=== PATIENT | female | born 1940 | race Caucasian/White ===

== ENCOUNTER → 2018-01-12 | Outpatient (CLI) | payer MEDICARE ==
--- NOTE | 2018-01-12 23:58 | BD ---
EXAMINATION TYPE: Axial Bone Density DATE OF EXAM: 01/12/2018 COMPARISON: NONE CLINICAL HISTORY: 77-year-old female postmenopausal screening Height: 59 IN Weight: 178 LBS FRAX RISK QUESTIONS: Secondary Osteoporosis: 3. Menopause before 45: YES AGE 35 RISK FACTORS HISTORY OF: Active: YES Postmenopausal woman: AGE 35 MEDICATIONS: Additional Medications: VIT D3, BLOOD PRESSURE MED, HEART MED, ATORVASTATIN, HCTZ EXAM MEASUREMENTS: Bone mineral densitometry was performed using the [employer] System. Bone mineral density as measured about the Lumbar spine is: ----- L1-L4(G/cm2): 1.182 T Score Values are as follows: ----- L2: -0.6 ----- L3: 0.2 ----- L4: 0.1 ----- L1-L4: 0.0 Bone mineral density BASELINE Bone mineral density about the R hip (g/cm2): 0.801 Bone mineral density about the L hip (g/cm2): 0.817 T Score values are as follows: -----R Neck: -1.7 -----L Neck: -1.6 -----R Total: -0.3 -----L Total: -0.9 Bone mineral density BASELINE IMPRESSION: Osteopenia (T Score between -2.5 and -1). There is slightly increased risk of fracture and the patient may be considered for treatment. Re-Screen 2-5 years. NOTE: T-SCORE=SD OF THE YOUNG ADULT MEAN.
--- NOTE | 2018-01-14 11:29 | MM ---
Reason for exam: screening (asymptomatic). Last mammogram was performed 2 years and 8 months ago. History: Patient is postmenopausal. Took estrogen for 30 years beginning at age 35. Physical Findings: A clinical breast exam by your physician is recommended on an annual basis and results should be correlated with mammographic findings. MG 3D Screening Mammo W/Cad Bilateral CC and MLO view(s) were taken. Prior study comparison: April 11, 2010, bilateral digital screening mammogram. April 07, 2007, CAD bilateral diagnostic mammogram. There are scattered fibroglandular densities. There is chronic nodularity in the left breast. No significant changes when compared with prior studies. ASSESSMENT: Negative, BI-RAD 1 RECOMMENDATION: Routine screening mammogram of both breasts in 1 year.
== END | disposition home or self-care (01) ==
LOC: RADMAMWWP 14:49
PROVIDERS: ATTEND Family Medicine
DX: Z12.31 Encounter for screening mammogram for malignant neoplasm of breast (principal); M85.80 Other specified disorders of bone density and structure, unspecified site; Z78.0 Asymptomatic menopausal state
CPT/HCPCS: 77063; 77067; 77080

== ENCOUNTER 2019-01-17 12:57 | Emergency (ER) | payer MEDICARE ==
[2019-01-17] MEDS ORDERED: DIPH,PERTUS(ACELL)TETVAC-LF 0.5 ML VIAL IM ONE (14:08)
[2019-01-17] MEDS ORDERED: ACETAMINOPHEN TAB 325 MG TAB PO STA (14:08)
[2019-01-17] MEDS ORDERED: LIDOCAINE 1% INJ 10MG/ML (20 ML MDV) SQ STA (14:09)
--- NOTE | 2019-01-17 15:25 | XR ---
EXAMINATION TYPE: XR forearm LT, XR humerus LT DATE OF EXAM: 01/17/2019 CLINICAL HISTORY: Left humerus and forearm pain after fall TECHNIQUE: Two views of the left humerus and forearm are obtained. COMPARISON: None. FINDINGS: Acute impaction fracture of the distal right radius is seen with 1.1 cm foreshortening. Th ere is a vague intra-articular component and comminution. Moderately alignment overall is maintained. No additional fracture seen. Carpal carpal interspaces are maintained. Glenohumeral joint is aligned . Elbow joint is aligned. No humeral fracture. Chromic clavicular joint demonstrates mild arthropathy . Overall there is diffuse osseous demineralization. Soft tissue swelling is seen overlying the prima ry fracture site. IMPRESSION: Acute comminuted intra-articular impaction fracture of the distal right radius with overl mu soft tissue swelling.
--- NOTE | 2019-01-17 16:43 | ED ---
General Adult HPI - General Chief complaint: Extremity Injury, Upper Stated complaint: Fall-wrist injury Time Seen by Provider: 01/17/19 14:01 Source: patient, RN notes reviewed, old records reviewed Mode of arrival: ambulatory Limitations: no limitations - History of Present Illness Initial comments: 79-year-old female patient presents ED chief complaint a fall. Patient was that she was walking a dog, the dog pulled her, she fell forward landing on her left forearm. Patient complains of pain in her left mid shaft radius. Denies any trauma to head or neck. Denies any loss of consciousness. Denies any use of blood thinners. His on the date of last tetanus. Patient does also have a laceration to the palmar aspect of the first MCP joint. Denies any other complaints. Systemic: Pt denies fatigue, fever/chills, rash. Pt denies weakness, night sweats, weight loss. Neuro: Pt denies headache, visual disturbances, syncope or pre-syncope. HEENT: Pt denies ocular discharge or irritation, otalgia, rhinorrhea, pharyngitis or notable lymphadenopathy. Cardiopulmonary: Pt denies chest pain, SOB, heart palpitations, dyspnea on exertion. Abdominal/GI: Pt denies abdominal pain, n/v/d. : Pt denies dysuria, burning w/ urination, frequency/urgency. Denies new onset urinary or bowel incontinence. MSK: Pt denies myalgia, loss of strength or function in extremities. Neuro: Pt denies new onset weakness, paresthesias. - Related Data Home Medications Medication Instructions Recorded Confirmed Aspirin EC [Ecotrin Low Dose] 81 mg PO HS 01/17/19 01/17/19 Atorvastatin [Lipitor] 10 mg PO HS 01/17/19 01/17/19 Carvedilol [Coreg] 6.25 mg PO BID 01/17/19 01/17/19 Cholecalciferol [Vitamin D3 (25 1,000 unit PO DAILY 01/17/19 01/17/19 Mcg = 1000 Iu)] Multivitamins, Thera [Multivitamin 1 tab PO DAILY 01/17/19 01/17/19 (formulary)] Allergies Allergy/AdvReac Type Severity Reaction Status Date / Time bee venom protein (honey bee) Allergy Anaphylaxis Verified 01/17/19 14:21 codeine AdvReac Unknown Verified 01/17/19 14:19 Review of Systems ROS Statement: Those systems with pertinent positive or pertinent negative responses have been documented in the HPI. ROS Other: All systems not noted in ROS Statement are negative. Past Medical History Past Medical History: Hypertension History of Any Multi-Drug Resistant Organisms: None Reported Past Surgical History: Hysterectomy, Orthopedic Surgery Additional Past Surgical History / Comment(s): gall bladder removal Past Psychological History: No Psychological Hx Reported Smoking Status: Never smoker Past Alcohol Use History: Occasional Past Drug Use History: None Reported General Exam - General Exam Comments Initial Comments: Constitutional: NAD, AOX3, Pt has pleasant affect. HEENT: NC/AT, trachea midline, neck supple, no lymphadenopathy. Posterior pharynx non erythematous, without exudates. External ears appear normal, without discharge. Mucous membranes moist. Eyes PERRLA, EOM intact. There is no scleral icterus. No pallor noted. Cardiopulmonary: RRR, no murmurs, rubs or gallops, no JVD noted. Lungs CTAB in anterior and posterior craig. No peripheral edema. Abdominal exam: Abdomen soft and non-distended. Abdomen non-tender to palpation in all 4 quadrants. Bowel sounds active in LLQ. No hepatosplenomegaly. No ecchy mosis Neuro: CN II-XII grossly intact. No nuchal rigidity. No raccon eyes, no jay sign, no hemotympanum. No cervical spinal tenderness. MSK: Left midshaft radius nontender to palpation. Mild amount of soft tissue swelling. Range of motion intact hand and wrist. Once under laceration to palmar aspect of left PIP joint of the fourth digit of left hand. Patient placed in a thumb spica splint, straight finger splint. Neurovascular intact after splint placement. No posterior calf tenderness bilaterally, homans sign negative bilaterally. Posterior tibialis and radial pulse +2 bilaterally. Sensation intact in upper and lower extremities. Full active ROM in upper and lower extremities, 5/5 stregnth. Limitations: no limitations Course Vital Signs 01/17/19 01/17/19 01/17/19 13:19 15:01 15:48 Temperature 62 F L 97.6 F Pulse Rate 61 Respiratory 18 16 Rate Blood Pressure 161/78 O2 Sat by Pulse 99 Oximetry Procedures - Laceration Laceration #1 Consent Obtained: verbal consent Indication: laceration Site: hand Size (cm): 1 Description: linear Anesthetic Used: lidocaine 1% Anesthesia Technique: local infiltration Amount (mls): 2 Pre-repair: wound explored, irrigated extensively, deep structures intact Size of Sutures: 5-0 Number of Sutures: 2 Technique: simple, interrupted Patient Tolerated Procedure: well, no complications Medical Decision Making - Medical Decision Making 79-year-old female patient presents ED chief complaint a fall. Patient was that she was walking a dog, the dog pulled her, she fell forward landing on her left forearm. Patient complains of pain in her left mid shaft radius. Denies any trauma to head or neck. Denies any loss of consciousness. Denies any use of blood thinners. His on the date of last tetanus. Patient does also have a laceration to the palmar aspect of the first MCP joint. Denies any other complaints. Patient was sent stable, afebrile. Physical exam displayed: Left midshaft radius nontender to palpation. Mild amount of soft tissue swelling. Range of motion intact hand and wrist. Once under laceration to palmar aspect of left PIP joint of the fourth digit of left hand. Patient placed in a thumb spica splint, straight finger splint. Neurovascular intact after splint placement. Plain film of forms for acute comminuted and particular impaction fracture of distal radius the flank soft tissue swelling. Patient was discharged with routine follow-up. Case discussed with Dr. Brown. Disposition Clinical Impression: Wrist fracture, Laceration Disposition: HOME SELF-CARE Condition: Stable Instructions (If sedation given, give patient instructions): Wrist Injury (ED), Wrist Fracture in Adults (ED), Laceration (ED) Additional Instructions: Patient to adhere to previously discussed treatment plan and will take medication(s) as directed. Patient to follow up with PCP in 1-2 days. Patient to return to ED if symptoms do not improve. Please return for suture removal: Hand: 7-10 days Face: 5 days Chest/abdomen: 12-14 days Extremities: 7-10 days Scalp: 7 days Eyebrow: 5-7 days Foot/sole: 12-14 days Please monitor for signs and symptoms of infection including: redness, warmth, drainage, discharge. Please return to ED if these signs or symptoms occur, new signs or symptoms develop or if condition worsens in anyway. Follow-up with orthopedic consult tomorrow. Continue to her wrist and straight finger splint. Return to ER if condition worsens. Is patient prescribed a controlled substance at d/c from ED?: No Referrals: Tesfaye Terry MD [Primary Care Provider] - 1-2 days West Desouza MD [STAFF PHYSICIAN] - 1-2 days
[2019-01-17 17:03] VITALS: BP 155/65; PULSE 71; RESP 20; TEMP 98
== END 2019-01-17 16:50 | disposition home or self-care (01) ==
LOC: EC 12:57
DX: S52.572A Other intraarticular fracture of lower end of left radius, initial encounter for closed fracture (principal); S61.412A Laceration without foreign body of left hand, initial encounter; I10 Essential (primary) hypertension; Z79.82 Long term (current) use of aspirin; Z79.899 Other long term (current) drug therapy; Z88.5 Allergy status to narcotic agent; Z91.030 Bee allergy status; W01.0XXA Fall on same level from slipping, tripping and stumbling without subsequent striking against object, initial encounter; Y93.K1 Activity, walking an animal
CPT/HCPCS: 73060; 73090; 90715; 99284; 90471; 29125; J2001

== ENCOUNTER → 2020-05-20 | Outpatient (CLI) | payer MEDICARE ==
--- NOTE | 2020-05-20 16:07 | BD ---
EXAMINATION TYPE: Axial Bone Density DATE OF EXAM: 05/20/2020 COMPARISON: 01/12/2018 CLINICAL HISTORY: Height: 58.7 IN Weight: 171 LBS FRAX RISK QUESTIONS: History of Fracture in Adulthood: LT WRIST AGE 79 Secondary Osteoporosis: 3. Menopause before 45: TOTAL HYST AGE 41 RISK FACTORS HISTORY OF: History of Wrist Fracture: LT WRIST AGE 79 Surgery to Wrist (left): YES AGE 79 Active: YES Postmenopausal woman: TOTAL HYST AGE 41 Take estrogen and/or progesterone medications: NOT NOW How long: TOOK CONTROL FOR 10 YEARS MEDICATIONS: Additional Medications: CALCIUM, VIT D, CARVEDITAL, ATORVASTATIN, AMLODIPINE, ASPIRIN EXAM MEASUREMENTS: Bone mineral densitometry was performed using the [employer] System. Bone mineral density as measured about the Lumbar spine is: ----- L1-L4(G/cm2): 1.194 T Score Values are as follows: ----- L2: -0.4 ----- L3: 0.4 ----- L4: 0.7 ----- L1-L4: 0.1 Bone mineral density has: Increased 3.4% since study of: 01/12/2018 Bone mineral density about the R hip (g/cm2): 0.813 Bone mineral density about the L hip (g/cm2): 0.832 T Score values are as follows: -----R Neck: -1.6 -----L Neck: -1.5 -----R Total: -0.9 -----L Total: -0.7 Bone mineral density has: Decreased -3.2% since study of: 01/12/2018 IMPRESSION: Osteopenia (T Score between -2.5 and -1). There is slightly increased risk of fracture and the patient may be considered for treatment. Re-Screen 2-5 years. NOTE: T-SCORE=SD OF THE YOUNG ADULT MEAN.
--- NOTE | 2020-05-21 09:41 | MM ---
Reason for exam: screening (asymptomatic). Last mammogram was performed 2 years and 4 months ago. History: Patient is postmenopausal. Took estrogen for 30 years beginning at age 35. Physical Findings: A clinical breast exam by your physician is recommended on an annual basis and results should be correlated with mammographic findings. MG 3D Screening Mammo W/Cad Bilateral CC and MLO view(s) were taken. Prior study comparison: January 12, 2018, bilateral MG 3d screening mammo w/cad. April 30, 2015, mammogram, performed at [facility]. There are scattered fibroglandular densities. There are benign appearing vascular calcifications bilaterally. There is chronic nodularity in the left breast. There is no discrete abnormality. ASSESSMENT: Benign, BI-RAD 2 RECOMMENDATION: Routine screening mammogram of both breasts in 1 year.
== END | disposition home or self-care (01) ==
LOC: RADBDWWP 12:50
PROVIDERS: ATTEND Family Medicine
DX: Z12.31 Encounter for screening mammogram for malignant neoplasm of breast (principal); M85.80 Other specified disorders of bone density and structure, unspecified site; Z78.0 Asymptomatic menopausal state
CPT/HCPCS: 77063; 77067; 77080

== ENCOUNTER → 2022-08-25 | Outpatient (CLI) | payer MEDICARE ==
--- NOTE | 2022-08-25 10:05 | BD ---
EXAMINATION TYPE: Axial Bone Density DATE OF EXAM: 08/25/2022 CLINICAL HISTORY: 82 year old Female. ICD-10 CODE: M89.9 DISORDER OF BONE Height: 58 Weight: 178.6 FRAX RISK QUESTIONS: Alcohol (3 or more units per day): no Family History (Parent hip fracture): no Glucocorticoids (More than 3mos): no (Ex: prednisone, prednisolone, methylprednisolone, dexamethasone, and hydrocortisone). History of Fracture in Adulthood: yes Secondary Osteoporosis: 1. Type 1 Diabetes: no 2. Hyperthyroidism: no 3. Menopause before 45: no 4. Malnutrition: no 5. Chronic liver disease: no Rheumatoid Arthritis: no Current Tobacco Use: no RISK FACTORS HISTORY OF: Hip Fracture (Right/Left): left wrist When: 2019 Surgery to Spine/Hip(right/left)/Wrist (right/left): no Family History of Osteoporosis: no Active: yes Diet low in dairy products/other sources of calcium: no Postmenopausal woman: yes Lost more than 2 inches in height since high school: no MEDICATIONS: Additional History: EXAM MEASUREMENTS: Bone mineral densitometry was performed using the [employer] System. Bone mineral density as measured about the Lumbar spine is: ----- L1-L4(G/cm2): 1.198 T Score Values are as follows: ----- L1: 0.3 ----- L2: -1.3 ----- L3: 0.9 ----- L4: 0.1 ----- L1-L4: 0.2 Z Score Values are as follows: ----- L1: 1.7 ----- L2: 0.0 ----- L3: 2.3 ----- L4: 1.8 ----- L1-L4: 1.5 Bone mineral density has: increased 0.3 % since study of: 05.20.2020 Bone mineral density about the R hip (g/cm2): 0.928 Bone mineral density about the L hip (g/cm2): .0953 T Score values are as follows: -----R Neck: -1.3 -----L Neck: -1.5 -----R Total: -0.6 -----L Total: -0.4 Z Score values are as follows: -----R Neck: 0.7 -----L Neck: 0.6 -----R Total: 1.2 -----L Total: 1.4 FRAX%s: The graph provided illustrates a 17.6% chance for a major osteoporotic fx and a 4.0% chance f or the hips probability for fx in 10 years time. IMPRESSION: Osteopenia (T Score between -2.5 and -1). There is slightly increased risk of fracture and the patient may be considered for treatment. Re-Screen 2-5 years. NOTE: T-SCORE=SD OF THE YOUNG ADULT MEAN.
== END | disposition home or self-care (01) ==
LOC: RADBDWWP 08:57
PROVIDERS: ATTEND Family Medicine
DX: M85.89 Other specified disorders of bone density and structure, multiple sites (principal); M89.9 Disorder of bone, unspecified
CPT/HCPCS: 77080